=== PATIENT | male | born 1990 | race Caucasian/White ===

== ENCOUNTER → 2025-05-18 11:24 | Outpatient (CLI) | payer BC, OTHER, SELFPAY ==
--- OUTSIDE RECORDS SUMMARY | 2025-05-18 11:26 | XMS_ITS | Continuity of Care Document ---
Author Organization [facility]. If a dditional information is needed, contact Health Information Management at [phone] Address [phone] [place] [address] Phone Care Team Providers Care Wire Tester Name Role Phone Unavailable Unavailable Unavailable Encounters pre-admission 13-Feb-2023 14:45 Christopher
--- OUTSIDE RECORDS SUMMARY | 2025-05-18 11:29 | XMS_ITS | Clinical Summary ---
[facility] Address [address] [place] [id number] Care Team Providers Care Ambulatory Service Representative Name Role Phone Provider, No Known Primary Care Provider [phone] Allergies Active Allergy Reactions Criticality Noted Date Comments Naproxen Swelling Medium 07/19/2016 Medications amoxicillin-clav ulanate (AUGMENTIN) 875-125 MG per tabletIndication s:Acute serous otitis media, recurrence not specified, unspecified laterality Take 1 tablet by mouth 2 (two) times a day. 20 tablet 07/19/2016 Active Social History Tobacco Use Types Packs/Day Years Used Date Smoking Tobacco: Every Day Cigarettes Abuse Screen Answer Date Recorded Unsafe at Home or Work/School Not on file Feels Threatened by Someone? Not on file 08/2023 Does Anyone Keep You from Co ntacting Others or Doint Things Outside the Home? Not on file 08/08/2023 Physical Sign of Abuse Present Not on file 1 Housing Stability Answer Date Recorded Current Living Arrangements Not on file 07/29 Potentially Unsafe Housing Conditions Not on riaz e 08/08/2023 Family and Community Support Answer Jamil e Recorded Help with Day-to-Day Activities Not on file 08/08/2023 Lonely or Isolated Not on file 08/08/2023 Employment Answer Date Recorded Do you want help finding or keeping work or a josselin b? Not on file 08/08/2023 Disabilities Answer Date Recorded Concentrating, Remembering, or Making Decisions Difficulty Not on file 08/08/2023 Doing Errands Independently Difficulty Not on fi le 08/08/2023 Education Answer Date Recorded Help with school or training? Not on file Preferred Language Not on file 08/08/2023 Sex and Gender Information Value Date Recorded Sex Assigned at Not on file Legal Sex Male 9:42 AM EDT Gender Identity Not on file Sexual Orientation Not on file Last Filed Vital Signs Vital Sign Reading Time Taken Comments Blood Pressure 146/100 07/19/2016 10:05 AM EDT Pulse 93 07/19/2016 10:05 AM EDT Temperature 36.9 C (98.5 F) 07/19/2016 10:05 AM EDT Respiratory Rate 18 07/19/2016 10:05 AM EDT Oxygen Saturation 96% 07/19/2016 10:05 AM EDT Inhaled Oxygen Concentration - - Weight 136 kg (300 lb) 07/19/2016 10:05 AM EDT Height 170.2 cm (5' 7 ) 07/19/2016 10:05 AM EDT Body Mass Index 46.99 07/19/2016 10:05 AM EDT Plan of Treatment Health Maintenance Due Date Last Done Comments ANNUAL PHYSICAL 1989 HEPATITIS C SCREENING 1989 TDAP/TD VACCINES (1 - Tdap) 2008 COVID-19 Vaccine (2023-2 5 season) 2024 INFLUENZA VACCINE 07/29/2025 Pneumococcal Vaccine 0-49 Aged Out No longer eligible based on patient's age to complete this topic Insurance PPO Member Subscriber Plan / Payer (Ef fective 2016-Present) Name:Donald Alas Relation to Subscriber:Self Name:Donald Alas Payer ID:[id number] (NAIC) Type:Not on file Address: [facility] [id number] [place] [phone] Care Teams Ambulatory Service Representative Relationship Specialty Start Date End Date Provider, [place] [address] PCP - General 07/19/16
== END ==
LOC: SL 11:25
PROVIDERS: PCP Family Medicine; Visit Provider Family Medicine
DX: G47.9 Sleep disorder, unspecified (principal); R06.83 Snoring
CPT/HCPCS: G0399